=== PATIENT | female | born 1930 | race Caucasian/White ===

== ENCOUNTER 2017-02-02 17:20 | Emergency (ER) | payer MEDICARE, BC ==
--- NOTE | 2017-02-03 16:41 | ER ---
ADMIT: 02/02/2017 RM/LOC: ER [facility] MR#: [id number] [address] [place], [place] [id number] PAULO WILSON [address] [place] [address] Emergency Room Report SEX: F AGE: 86 : 1930 DATE: 02/02/2017 ADDENDUM: An 86-year-old, white female coming in with nausea. She recently was started on tramadol for little pain after she scraped her left leg. I do believe the tramadol is causing it as it is a common side effect. We are stopping the tramadol. She is going to be n.p.o. for an hour, so I gave her 8 of Zofran IV p.o. I also sent her home with Zofran as well, 4 mg #20. In a couple of hours, she does sips of clear liquids and then uses her Zofran as directed. In the morning, she can restart her antibiotic and then start Tylenol or Motrin for pain if she needs it. CONDITION ON DISCHARGE: Good. Issa Preciado MD/ kaushal JOB #: [id number] CC: Issa Preciado MD, Attending Physician UNKNOWN, Family Physician
== END 2017-02-02 18:05 | disposition home or self-care (01) ==
LOC: ER 17:20
DX: T40.4X5A Adverse effect of other synthetic narcotics, initial encounter (principal); R11.2 Nausea with vomiting, unspecified; Z86.73 Personal history of transient ischemic attack (TIA), and cerebral infarction without residual deficits; Z87.891 Personal history of nicotine dependence; Z79.899 Other long term (current) drug therapy